=== PATIENT | female | born 1960 | race Caucasian/White ===

== ENCOUNTER → 2019-05-03 | Outpatient (CLI) | payer BC ==
--- NOTE | 2019-05-03 10:42 | PCVCIMAG ---
APPROVED REPORT Study performed: 05/03/2019 08:34:47 EXAM: Comprehensive 2D, Doppler, and color-flow Echocardiogram [facility] BSA: 1.71 HR: 70 bpmBP: 136/84 mmHg Rhythm: NSR Other Information Study Quality: Adequate Risk Factors: Cardiac Risk Factors: HTN, Hyperlipidemia Indications Chest Pain Hypertension/HDD 2D Dimensions IVSd: 13.22 (7-11mm)LVOT Diam: 20.00 (18-24mm) LVDd: 36.63 mm PWd: 11.37 (7-11mm)Ascending Ao: 28.41 (22-36mm) LVDs: 24.65 (25-40mm) Left Atrium: 35.96 (27-40mm) Aortic Root: 28.74 mm LV Single Plane 4CH: 56.99 % LV Single Plane 2CH: 61.21 % Biplane EF: 57.4 % Volumes Left Atrial Volume (Systole) Single Plane 4CH: 36.44 mLSingle Plane 2CH: 40.77 mL LA ESV Index: 23.00 mL/m2 Aortic Valve AoV Peak Nicholas.: 1.11 m/s AO Peak Gr.: 4.97 mmHgLVOT Max P.70 mmHg LVOT Max V: 0.82 m/s ANDREA Vmax: 2.22 cm2 AI Vmax: 3.93 m/s AI [place]: 2.80 m/s2 AI PHT: 406.55 ms Mitral Valve E/A Ratio: 0.9 MV Decel. Time: 142.05 ms MV E Max Nicholas.: 0.57 m/s MV A Nicholas.: 0.61 m/s IVRT: 76.12 ms TDI E/Lateral E': 8.14E/Medial E': 11.40 Medial E' Nicholas.: 0.05 m/s Lateral E' Nicholas.: 0.07 m/s Pulmonary Valve PV Peak Nicholas.: 0.70 m/sPV Peak Gr.: 1.98 mmHg Pulmonary Vein P Vein S: 0.49 m/sP Vein A: 0.30 m/s P Vein D: 0.39 m/sP Vein A Dur.: 107.3 msec P Vein S/D Ratio: 1.26 Tricuspid Valve TR Peak Nicholas.: 2.44 m/sRAP Estimate: 7.00 mmHg TR Peak Gr.: 23.77 mmHg PA Pressure: 31.00 mmHg Left Ventricle The left ventricle is normal size. There is normal LV segmental wall motion. There is normal left ventricular wall thickness. The left ventricular systolic function is normal. The left ventricular ejection fraction is within the normal range. LVEF is 60-65%. The left ventricular diastolic function is normal. Right Ventricle The right ventricle is normal size. The right ventricular systolic function is normal. Atria The left atrium size is normal. The right atrium size is normal. Aortic Valve The aortic valve is normal in structure. Mild aortic regurgitation. There is no aortic valvular stenosis. Mitral Valve The mitral valve is normal in structure. Mild mitral regurgitation. No evidence of mitral valve stenosis. Tricuspid Valve The tricuspid valve is normal in structure. Mild to moderate tricuspid regurgitation. Pulmonary artery pressure is 31 mmHg. Pulmonic Valve The pulmonary valve is normal in structure. Mild pulmonic regurgitation. Great Vessels The aortic root is normal in size. The ascending aorta is normal in size. IVC is normal in size and collapses >50% with inspiration. Pericardium There is no pericardial effusion. <Conclusion> The left ventricle is normal size. The left ventricular systolic function is normal. The right ventricle is normal size. The left atrium size is normal. Mild aortic regurgitation. Mild mitral regurgitation. Mild to moderate tricuspid regurgitation. Pulmonary artery pressure is 31 mmHg.
== END | disposition home or self-care (01) ==
LOC: PCVCIMAG 08:10
PROVIDERS: ATTEND Internal Medicine Cardiovascular Disease
DX: I08.8 Other rheumatic multiple valve diseases (principal); I10 Essential (primary) hypertension; E78.00 Pure hypercholesterolemia, unspecified; K21.9 Gastro-esophageal reflux disease without esophagitis; I25.10 Atherosclerotic heart disease of native coronary artery without angina pectoris; Z88.8 Allergy status to other drugs, medicaments and biological substances
CPT/HCPCS: 93306